=== PATIENT | female | born 1975 | race Caucasian/White ===

== ENCOUNTER 2019-11-11 19:35 | Emergency (ER) | payer SELFPAY ==
[~2019-11-11] VITALS: Ht 165.1 cm; Wt 102.5 kg
[2019-11-11 20:48] VITALS: BP 148/75
== END 2019-11-11 20:48 | disposition home or self-care (01) ==
LOC: ED 19:35
DX: S60.031A Contusion of right middle finger without damage to nail, initial encounter (principal); S60.041A Contusion of right ring finger without damage to nail, initial encounter; I10 Essential (primary) hypertension; X58.XXXA Exposure to other specified factors, initial encounter; Y93.89 Activity, other specified; Y92.89 Other specified places as the place of occurrence of the external cause; Y99.8 Other external cause status
CPT/HCPCS: Q0092